=== PATIENT | female | born 1980 | race Caucasian/White ===

== ENCOUNTER 2020-12-17 13:25 | Emergency (ER) | payer OTHER ==
[~2020-12-17 13:25] MED LIST: BRINTELLIX20 MG PO; BUSPIRONE HCL10 MG PO; KLONOPIN0.5 MG PO; LEVOTHYROXINE25 MCG PO; NORCO 5-325 TA1 EACH PO; ONDANSETRON ODT8 MG PO; VIIBRYD20 MG PO
[2020-12-17 14:11] LABS: BASOPHIL 0.3 % (0-2); EOSINOPHIL 3.4 % (0-5); HCT 44.4 % (37.0-47.0); HGB 15.3 g/dl (12.5-16.0); LYMPHOCYTE 29.7 % (15-48); MCH 30.5 pg (25.0-31.0); MCHC 34.5 g/dL (32.0-36.0); MCV 88.4 fL (78.0-100.0); MONOCYTE 13.1 % (0-12); MPV 9.6 fL (6.0-9.5); NEUTROPHIL 53.2 % (41-80); NRBC 0; PLT 221 K/uL (150-400); RBC 5.02 M/uL (4.20-5.40); RDW 11.8 % (11.5-14.0); WBC 3.2 K/uL (4.0-10.5)
[2020-12-17 14:13] LABS: BILIRUBIN 2+ mg/dL (NEGATIVE); BLOOD NEGATIVE Ery/uL (NEGATIVE); CLARITY CLEAR (CLEAR); COLOR YELLOW (YELLOW); GLUCOSE (U) NORMAL (NORMAL); LEUKOCYTES NEGATIVE Leu/uL (NEGATIVE); NITRITE NEGATIVE (NEGATIVE); PROTEIN 1+ mg/dL (NEGATIVE); SPECIFIC GRAVITY >=1.030 (1.001-1.030); UROBILINOGEN 0.2 mg/dL (0.2-1.0)
[2020-12-17 14:22] LABS: ALBUMIN 4.2 g/dL (3.4-5.0); BILIRUBIN - TOTAL 0.4 mg/dL (0.2-1.0); BUN/CREAT RATIO (CALC) 14.5 RATIO; CREATININE 0.83 mg/dL (0.51-0.95); GLOBULIN (CALCULATION) 3.8 g/dL; POTASSIUM 3.7 mmol/L (3.5-5.1)
[2020-12-17 14:40] LABS: BACTERIA 1+; URINARY WBC RARE
[2020-12-17] MEDS ORDERED: ONDANSETRON ODT4 MG PO (15:31)
== END 2020-12-17 15:54 | disposition home or self-care (01) ==
LOC: FER 13:25
PROVIDERS: Emergency Medicine
DX: A08.4 Viral intestinal infection, unspecified (principal); Z87.19 Personal history of other diseases of the digestive system; Z20.822 Contact with and (suspected) exposure to COVID-19
CPT/HCPCS: 36415; 80053; 81001; 82150; 83690; 85025; J2405; J2930; J7120; U0002